=== PATIENT | female | born 2000 | race Caucasian/White ===

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

== ENCOUNTER 2018-04-13 22:52 | Emergency (ER) | payer SELFPAY ==
[2018-04-13 22:59] VITALS: BP 143/88
== END 2018-04-13 23:04 | disposition left against medical advice (07) ==
LOC: ED 22:52
DX: M25.531 Pain in right wrist (principal); Z53.21 Procedure and treatment not carried out due to patient leaving prior to being seen by health care provider

== ENCOUNTER 2018-07-16 13:22 | Emergency (ER) | payer OTHER ==
[2018-07-16 14:55] VITALS: BP 108/64
--- NOTE | 2018-07-17 12:10 | ED ---
Throat Pain/Nasal Congestion - HPI Summary HPI Summary: Pt. is a 17 y.o female who presents to the ER for fever, cough, sore throat, and ear pain x 3 days. No associated sxs of abd. pain, V/D, or urinary sxs. No past medical hx. Sx are mild in severity. NO current modifying factors. - History of Current Complaint Chief Complaint: EDThroatPain Time Seen by Provider: 07/16/18 13:57 Hx Obtained From: Patient - Allergies/Home Medications Allergies/Adverse Reactions: Allergies Allergy/AdvReac Type Severity Reaction Status Date / Time No Known Allergies Allergy Verified 07/16/18 13:24 Home Medications: Home Medications FLUoxetine CAP* [PROzac CAP*] 10 mg PO DAILY 07/16/18 [History Confirmed ] hydrOXYzine HCL TAB* [Atarax 25 MG TAB*] 1 tab PO DAILY 07/16/18 [History Confirmed 07/16/18] traZODone TAB* [Desyrel TAB*] 50 mg PO BEDTIME 07/16/18 [History Confirmed 07/16] PMH/Surg Hx/FS Hx/Imm Hx Previously Healthy: Yes Endocrine/Hematology History: Denies: Hx Diabetes Cardiovascular History: Denies: Hx Hypertension Respiratory History: Denies: Hx Asthma Psychiatric History: Reports: Hx Substance Abuse Denies: Hx Eating Disorder, Hx of Violent Episodes Against Others - Surgical History Surgery Procedure, Year, and Place: n/a Infectious Disease History: No Infectious Disease History: Denies: Traveled Outside the [place] in Last 30 Days - Family History Known Family History: Positive: None, Non-Contributory - Social History Occupation: Employed Full-time Lives: With Family Alcohol Use: None Substance Use Type: Reports: None Substance Use Comment - Amount & Last Used: Meth Smoking Status (MU): Never Smoked Tobacco Review of Systems Positive: Fever, Chills Eyes: Negative Positive: Sore Throat, Ear Ache Cardiovascular: Negative Positive: Cough. Negative: Shortness Of Breath Gastrointestinal: Negative Genitourinary: Negative Musculoskeletal: Negative Skin: Negative Neurological: Negative All Other Systems Reviewed And Are Negative: Yes Physical Exam Triage Information Reviewed: Yes Vital Signs On Initial Exam: Initial Vitals Temp Pulse Resp BP Pulse Ox 97.7 F 95 14 109/80 99 07/16/18 13:26 07/16/18 13:26 07/16/18 13:26 07/16/18 13:26 07/16/18 13:26 Vital Signs Reviewed: Yes Appearance: Positive: Well-Appearing - Pt. sitting on bed in NAD> Skin: Positive: Warm, Dry Head/Face: Positive: Normal Head/Face Inspection Eyes: Positive: Normal, EOMI, OMAR, Conjunctiva Clear ENT: Positive: Pharyngeal erythema, Other - LEft TM unremarkable. Right TM erythematous and bulging. Negative: Tonsillar swelling, Tonsillar exudate Neck: Positive: Supple, Nontender, Enlarged Nodes @ - cervical Respiratory/Lung Sounds: Positive: Clear to Auscultation, Breath Sounds Present. Negative: Rales, Rhonchi, Wheezes Cardiovascular: Positive: Normal, RRR Musculoskeletal: Positive: Normal, Strength/ROM Intact Neurological: Positive: Normal, CN Intact II-III Psychiatric: Positive: Affect/Mood Appropriate Diagnostics - Vital Signs Vital Signs Temp Pulse Resp BP Pulse Ox 07/16/18 14:54 98.1 F 86 19 108/64 99 07/16/18 13:26 97.7 F 95 14 109/80 99 - Laboratory Lab Statement: Any lab studies that have been ordered have been reviewed, and results considered in the medical decision making process. EENT Course/Dx - Course Course Of Treatment: Pt. exam consistant with OM. Will treat with augmentin. Tylenol or motrin for pain and fever as directed. Increase fluids and rest. Work excuse given. To f.u with PCP. - Differential Diagnoses Differential Diagnoses: Allergic Rhinitis, Epiglottitis, Mastoiditis, Otitis Media, Pharyngitis, Sinusitis, Tonsilitis - Diagnoses Provider Diagnoses: Otitis media Discharge - Sign-Out/Discharge Documenting (check all that apply): Patient Departure Patient Received Moderate/Deep Sedation with Procedure: No - Discharge Plan Condition: Good Disposition: HOME Prescriptions: Amoxicillin/Clavulanate TAB* [Augmentin TAB 875*] 875 mg PO BID 10 Days #20 tab Patient Education Materials: Ear Infection (ED) Forms: *Work Release Referrals: Tom BHATTI,Vincenzo Tiwari [Primary Care Provider] - - Billing Disposition and Condition Condition: GOOD Disposition: Home
== END 2018-07-16 14:54 | disposition home or self-care (01) ==
LOC: ED 13:22
DX: H66.91 Otitis media, unspecified, right ear (principal)
CPT/HCPCS: 99282

== ENCOUNTER 2018-07-18 07:27 | Emergency (ER) | payer OTHER ==
--- NOTE | 2018-07-18 07:48 | ED ---
Influenza-Like Illness - HPI Summary HPI Summary: This pt is a 17 y/o female presenting to [facility] c/o flu like symptoms for the past 4 days. Her symptoms include fever, cough, runny nose, sore throat, headache. She describes a productive cough with brown sputum. Pt states she might have bronchitis. Pt notes she had a fever of 104 F this morning. Denies chest pain, SOB, abd pain. She was diagnosed with a right ear infection 2 days ago and was given Amoxicillin which she has been taking. LMP: 1 week ago. - History of Current Complaint Chief Complaint: EDFluSymptoms Time Seen by Provider: 07/18/18 07:37 Hx Obtained From: Patient Onset/Duration: Lasting Days, Still Present Severity: Moderate Associated Signs & Symptoms: Fever, Cough, Sore Throat, Nasal Congestion, Headache - Allergy/Home Medications Allergies/Adverse Reactions: Allergies Allergy/AdvReac Type Severity Reaction Status Date / Time No Known Allergies Allergy Verified 07/16/18 13:24 PMH/Surg Hx/FS Hx/Imm Hx Endocrine/Hematology History: Denies: Hx Diabetes Cardiovascular History: Denies: Hx Hypertension Respiratory History: Denies: Hx Asthma Psychiatric History: Reports: Hx Substance Abuse Denies: Hx Eating Disorder, Hx of Violent Episodes Against Others - Surgical History Surgery Procedure, Year, and Place: Tonsillectomy. 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 Negative: Shortness Of Breath Negative: Abdominal Pain Positive: Headache All Other Systems Reviewed And Are Negative: Yes Physical Exam - Summary Physical Exam Summary: VITAL SIGNS: Reviewed. GENERAL: Patient is a well-developed and nourished female who is lying comfortable in the stretcher. Patient is not in any acute respiratory distress. HEAD AND FACE: Normocephalic. Nasal congestion. Runny nose. EYES: PERRLA, EOMI x 2. EARS: Hearing grossly intact. MOUTH: Oropharynx within normal limits. Pharyngeal erythema. NECK: Supple, trachea is midline, no adenopathy, no JVD, no carotid bruit. CHEST: Symmetric, no tenderness at palpation LUNGS: Clear to auscultation bilaterally. No wheezing or crackles. CVS: Regular rate and rhythm, S1 and S2 present, no murmurs or gallops appreciated. ABDOMEN: Soft, non-tender. Bowel sounds are normal. No abdominal abnormal pulsations. EXTREMITIES: Full ROM in all major joints, no edema, no cyanosis or clubbing. NEURO: Alert and oriented x 3. No acute neurological deficits. Speech is normal and follows commands. SKIN: Dry and warm Triage Information Reviewed: Yes Vital Signs On Initial Exam: Initial Vitals Temp Pulse Resp BP Pulse Ox 99.1 F 117 20 130/87 97 07/18/18 07:29 07/18/18 07:29 07/18/18 07:29 07/18/18 07:29 07/18/18 07:29 Vital Signs Reviewed: Yes Diagnostics - Vital Signs Vital Signs Temp Pulse Resp BP Pulse Ox 07/18/18 07:29 99.1 F 117 20 130/87 97 - Laboratory Result Diagrams: 07/18/18 08:10 07/18/18 08:10 Lab Statement: Any lab studies that have been ordered have been reviewed, and results considered in the medical decision making process. Re-Evaluation - Re-Evaluation First Eval Re-Evaluation Time: 09:15 Comment: Reviewed results with pt. She will be discharged home. Flu Symptom Course/Dx - Course Assessment/Plan: This pt is a 17 y/o female presenting to [facility] c/o flu like symptoms for the past 4 days. Her symptoms include fever, cough, runny nose, sore throat, headache. She describes a productive cough with brown sputum. Pt states she might have bronchitis. Pt notes she had a fever of 104 F this morning. Denies chest pain, SOB, abd pain. She was diagnosed with a right ear infection 2 days ago and was given Amoxicillin which she has been taking. LMP: 1 week ago. Blood test results without any significant abnormality except for CRP of 24.9, and influenza A is positive. Rapid strep is negative. In the ED course patient was given IV fluids and Toradol for the body aches. I believe that the patients symptoms are secondary to the influenza. The symptoms have started more than 4 days ago therefore the patient would not benefit from the Tamiflu. Therefore the patient will be discharged home with follow-up from her primary care physician. Patient is hemodynamically stable, alert and oriented 3. I discussed all the findings and test results with the patient. Patient was instructed to return to the emergency room immediately if any of the symptoms return worsens. Plan of care was discussed with the patient and understands and agrees. All questions were answered at patient satisfaction. There were no further complaints or concerns. Lung exam before discharge: CTA B/L. Good air exchange. No wheezing or crackles heard. CVS: S1 and S2 present. No murmurs appreciated. Patient is alert and oriented x 3. Patient is hemodynamically stable. Patient will be discharged home with follow up PCP in the next 2-3 days. - Diagnoses Differential Diagnosis/HQI/PQRI: Positive: Bronchitis, Broncholiolitis, Influenza, Upper Respiratory Infection Provider Diagnoses: Influenza A Discharge - Sign-Out/Discharge Documenting (check all that apply): Patient Departure - Discharge home Patient Received Moderate/Deep Sedation with Procedure: No - Discharge Plan Condition: Stable Disposition: HOME Patient Education Materials: Influenza (ED) Forms: *Work Release Referrals: Tom BHATTI,Vincenzo Tiwari [Primary Care Provider] - Additional Instructions: PLEASE FOLLOW UP WITH YOUR PRIMARY CARE PROVIDER IN 2-3 DAYS. RETURN TO THE ED FOR ANY WORSENING OR NEW SYMPTOMS. - Billing Disposition and Condition Condition: STABLE Disposition: Home - Attestation Statements Document Initiated by Samir: Yes Documenting Scribe: Marni Ibrahim Provider For Whom Samir is Documenting (Include Credential): Pedro Zamudio MD Scribe Attestation: Marni Samson scribed for Pedro Zamudio MD on 07/18/18 at 0926. Scribe Documentation Reviewed: Yes Provider Attestation: The documentation as recorded by the Marni aleman accurately reflects the service I personally performed and the decisions made by , Pedro Zamudio MD Status of Scribe Document: Viewed
[2018-07-18] MEDS ORDERED: NS 0.9% 1000 ML** 1,000 ML IV ONE (07:50)
[2018-07-18] MEDS ORDERED: Ketorolac INJ* 30 MG/ML 1 ML VIAL IV PUSH ONE (07:53)
[2018-07-18 08:18] LABS: ABS Basophils 0 10^3/ul (0-0.2); ABS Eosinophils 0.1 10^3/ul (0-0.6); ABS Lymphocytes 1.3 10^3/ul (1.0-4.8); ABS Monocytes 0.7 10^3/ul (0-0.8); ABS Neutrophils 3.4 10^3/ul (1.5-7.7); ABS Nucleated RBC 0 10^3/ul; Eosinophil % 1.2 %; Hematocrit 38 % (33-41); Hemoglobin 13.2 g/dL (12.0-16.0); Lymphocyte % 23.1 %; Mean Corpuscular HGB Conc 34 g/dL (31-36); Mean Corpuscular Hemoglobin 30 pg (27-31); Mean Corpuscular Volume 89 fL (80-97); Mean Platelet Volume 7.7 fL (7.4-10.4); Nucleated Red Blood Cells % 0.1; Platelet Count 242 10^3/uL (150-450); Red Blood Count 4.33 10^6 /uL (3.70-4.87); Red Cell Distribution Width 12 % (10.5-15); White Blood Count 5.4 10^3/uL (3.5-10.8)
[2018-07-18 08:28] LABS: Influenza A Molecular POSITIVE (Negative)
[2018-07-18 08:36] LABS: Albumin 4.2 g/dL (3.2-5.2); Albumin/Globulin Ratio 1.4 (1-3); BUN/Creatinine Ratio 15.5 (8-20); C Reactive Protein 24.94 mg/L (<8.01); Calcium 9.3 mg/dL (8.6-10.3); EGFR African American 128.3 (>60); Globulin 3.1 g/dL (2-4); Total Bilirubin 0.3 mg/dL (0.2-1.0); Total Protein 7.3 g/dL (6.4-8.9)
[2018-07-18 09:44] VITALS: BP 122/71
== END 2018-07-18 09:42 | disposition home or self-care (01) ==
LOC: ED 07:27
DX: J10.1 Influenza due to other identified influenza virus with other respiratory manifestations (principal)
CPT/HCPCS: 36415; 80053; 83605; 85025; 86140; 87651; 96361; 96374; 99282; J1885

== ENCOUNTER 2019-05-09 18:49 | Emergency (ER) | payer OTHER ==
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
--- OUTSIDE RECORDS SUMMARY | 2019-05-09 19:04 | XMS REPORT | Summary of Care ---
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 DIFFERENTIAL STAT 04/17/2019 7:31 Results for this AM EST procedure are in the results section. TYPE AND SCREEN STAT 04/17/2019 7:31 Results for this AM EST procedure are in the results section. URINE DRUG SCREEN Routine 04/17/2019 7:00 Results for this AM EST procedure are in the results section. documented in this encounter Results ECHOCARDIOGRAM TTE (04/19/2019 10:41 AM EST) ECHOCARDIOGRAM TTE ECHOCARDIOGRAPHY REPORT CARDIOLOGY DEPARTMENT Patient Name: AMILCAR CHIN Status: Inpatient MR Number: [id number] Gender: Female : 2000 Location: [place] Age:18 year(s) Exam Date: 04/19/2019 10:41 AM Height: 65 inches Weight: 190 pounds Study Performed: 2D echocardiogram, M-Mode, Doppler , Color Doppler, ECHOCARDIOGRAM TTE, Echocardiogram . Ordering DON CROSS Provider: Referring Provider: Mine Production Engineer: Vidhya West [facility] Room Number [id number] Interpreting THIERRY Physician JOEY BHATTI BSA: 1.94 m^2 Interpreting BMI: 31.62 kg/m^2 Fellow Nurse Technical Quality: Good visualization Contrast Medium: Bubble Study. Heart Rate (HR): 79bpm Blood Pressure (BP): 123/70mmHg INDICATION FOR STUDY: TIA. HISTORY: 18 year old female for TIA. Bubble study performed to rule out possibility of PFO/ASD. FINAL IMPRESSION: Left ventricular cavity size is normal. Left ventricular wall thickness is normal. No evidence of LVOT obstruction. No regional wall motion abnormalities. Global systolic function is normal with estimated LV EF 55-60 %. There is trace mitral regurgitation. No evidence of mitral stenosis or prolapse. There is no aortic stenosis or regurgitation. There is mild tricuspid regurgitation. Estimated pulmonary artery systolic pressure is 17 mmHg. There is mild pulmonic regurgitation. The left atrium size is normal Right atrial area is normal The right ventricle is normal in size with preserved contractility. No evidence of PFO or ASD. Bubble study was performed and showed no evidence of ASD. There is no pericardial effusion. No prior study for comparison OBSERVATIONS & FINDINGS: Using 2d (3d if applicable), M-mode, Colorflow, Continuous wave doppler and Pulse wave doppler interrogation Left Ventricle Left ventricular cavity size is normal. Left ventricular wall thickness is normal. No evidence of LVOT obstruction. No regional wall motion abnormalities. Global systolic function is normal with estimated LV EF 55-60 %. Left Atrium Vertical and lateral dimensions are 4.9 cm and 3.6 cm respectively. The left atrium size is normal (Normal indexed volume <35 ml/m2). Mitral Valve Mitral valve has mildly thickened but flexible leaflets. There is trace mitral regurgitation. No evidence of mitral stenosis or prolapse. Aortic Valve Aortic valve appears tricuspid with mildly thickened and calcified but flexible leaflets. There is no aortic stenosis or regurgitation. Right Ventricle The right ventricle is normal in size with preserved contractility. Right Atrium Vertical and lateral dimensions measure 4.2 cm and 4.1 cm respectively. Right atrial area is normal (18 cm2 or less) and measures 14.3 cm2. Tricuspid Valve The tricuspid valve is structurally normal with mobile leaflets. There is mild tricuspid regurgitation. Estimated pulmonary artery systolic pressure is 17 mmHg. There is no (TR velocity<2.9m/sec, guidelines) pulmonary hypertension. Pulmonic Valve The pulmonic valve is structurally normal with flexible leaflets. There is mild pulmonic regurgitation. Pericardium / Pleura There is no pericardial effusion. Miscellaneous Visualized portions of aorta are within normal limits. Interatrial septum appears intact by 2D imaging and Color Doppler interrogation. No evidence of PFO or ASD. Bubble study was performed and showed no evidence of ASD. Measurements & Calculations: M-Mode / 2D Measurements Value Normal Value Normal LVIDd: 4.46 cm 3.5-5.5 AO Root: 2.67 cm 2.0-3.7 LVIDs: 2.84 cm 3.0-4.0 LA Dimension: cm 1.9-4.0 IVSd: 0.98 cm 0.7-1.1 LVOT: 1.97 cm 1.5-2.5 LVPWD: 1.07 cm 0.7-1.1 RV Diastolic Dimension: 3.6 cm EF Estimated: 58 % 50-70% Doppler Measurements & Calculations: Mitral: Aortic: Area (PHT): 2.91 cm^2 LVOT VTI: 20.3 cm Peak E-Wave: 119 cm/s Peak Velocity: 159 cm/s Peak A-Wave: 73.8 cm/s Peak Gradient: 10.11 mmHg Peak Gradient: 5.66 mmHg P1/2t: 75.7 msec Area (continuity): 2.07 cm^2 Mean Velocity: 113 cm/s Mean Gradient: 5.67 mmHg AV VTI: 29.9 cm E/A Ratio: 1.61 Tricuspid: Pulmonic: RVSP:17 mmHg Peak Velocity: 85.1 cm/s Peak TR Velocity:185 cm/s Peak Gradient: 2.9 mmHg TR Gradient:13.69 mmHg TX ED Velocity: 99.4 cm/s TR Velocity: 185 cm/s TR Gradient: 13.69 mmHg Estimated PASP: 16.69 mmHg Estimated RAP: 3 mmHg Estimated RVSP: 17 mmHg Left Atrium: Right Atrium: LA Dimension: 3.6 cm RA dimension:4.1 cm LA/Aorta: 1.35 RA area:14.3 cm^2 LA Area: 14.6 cm^2 LA Volume/Index: 26.26 ml /14m^2 Left Ventricle: Right Ventricle: Diastolic Dimension: 4.46 cm Septum Diastolic: 0.98 cm PW Diastolic: 1.07 cm Alex dimension:3.6 cm EF Calculated: 57.96% CO: 4.89 l/min RV sys pressure:16.69 mmHg FS: 36.32 % LVOT LV Length: 7.4 cm Peak Velocity: 119 cm/s LVOT Diameter: 1.97 cm Peak Gradient: 5.64 mmHg Systolic Dimension: 2.84 cm LVOT Diameter: 1.97 cm Mean Velocity: 77.9 cm/s EF Estimated: 58% Mean Gradient: 2.75 mmHg CI: 2.52 l/min*m^2 LVOT VTI: 20.3 cm Aorta LV EDV/LV EDV Index: 90.4 ml/47 m^2 Aortic Root: 2.67 cm LV ESV/LV ESV Index: 38 ml/20 m^2 Ascending Aorta: 2.43 cm LVOT Diameter: 1.97 cm Pulmonary Vein: S Velocity: 56.2 cm/s D Velocity: 68.7 cm/s A Reversal Velocity: 25.5 cm/s A Reversal Duration: 130 msec Signature Ejection Fraction 58 % CARDIOLOGY DEPARTMENT AV AREA 2.07 cm2 CARDIOLOGY DEPARTMENT RVSP 17 mmHg CARDIOLOGY DEPARTMENT LA Volume 26.26 ml CARDIOLOGY DEPARTMENT LVEDd 4.46 cm CARDIOLOGY DEPARTMENT LVESd 2.84 cm CARDIOLOGY DEPARTMENT IVSd 0.98 cm CARDIOLOGY DEPARTMENT LVPWd 1.07 cm CARDIOLOGY DEPARTMENT ESV 38 ml CARDIOLOGY DEPARTMENT EDV 90.4 ml CARDIOLOGY DEPARTMENT AV Mean Gradient 5.67 mmHg CARDIOLOGY DEPARTMENT Specimen Performing Organization Address City/State/[facility] Phone Number CARDIOLOGY DEPARTMENT CT HEAD ANGIOGRAPHY [facility] [place] (04/18/2019 12:41 PM EST) Specimen Impressions Performed At Normal intracranial CTA. Urgency: Routine. This is a routine medical imaging report. Recommendation: No specific imaging recommendation. Signed by Dav Barakat MD on 04/18/2019 12:48 PM Narrative Performed At Procedure(s): CT HEAD ANGIOGRAPHY [facility] [place] Date of service: 04/18/2019 12:38 PM Provided clinical information: 18 years, Female, "pt dx with TIA 04/17/2019" Procedure and materials: Axial computed tomographic angiography images of the brain were obtained with intravenous contrast. MIP reconstructed images were created and reviewed. Coronal and sagittal reformatted images were created and reviewed. Contrast: IV contrast. Comparison studies: None. Observations: Right ICA: The right ICA is patent through the skull base. Right MCA is patent. Right EDUARDO is patent. Left ICA: The left ICA is patent through the skull base. Left MCA is patent. Left EDUARDO is patent. Posterior circulation: The intradural vertebral arteries are patent. Basilar artery is patent. Bilateral floral merchandiser appear patent. Vascular anomalies: No aneurysms or other vascular anomalies are seen. Brain parenchyma: There is no abnormal enhancement. Osseous/surrounding soft tissues: Osseous structures appear unremarkable. Surrounding soft tissues appear unremarkable. Procedure Note Interface, Rad Results - 04/18/2019 12:50 PM EST Procedure(s): CT HEAD ANGIOGRAPHY [facility] [place] Date of service: 04/18/2019 12:38 PM Provided clinical information: 18 years, Female, "pt dx with TIA 04/17/2019" Procedure and materials: Axial computed tomographic angiography images of the brain were obtained with intravenous contrast. MIP reconstructed images were created and reviewed. Coronal and sagittal reformatted images were created and reviewed. Contrast: IV contrast. Comparison studies: None. Observations: Right ICA: The right ICA is patent through the skull base. Right MCA is patent. Right EDUARDO is patent. Left ICA: The left ICA is patent through the skull base. Left MCA is patent. Left EDUARDO is patent. Posterior circulation: The intradural vertebral arteries are patent. Basilar artery is patent. Bilateral floral merchandiser appear patent. Vascular anomalies: No aneurysms or other vascular anomalies are seen. Brain parenchyma: There is no abnormal enhancement. Osseous/surrounding soft tissues: Osseous structures appear unremarkable. Surrounding soft tissues appear unremarkable. IMPRESSION Normal intracranial CTA. Urgency: Routine. This is a routine medical imaging report. Recommendation: No specific imaging recommendation. Signed by Dav Barakat MD on 04/18/2019 12:48 PM URINE PROTEIN / CREATININE RATIO (04/18/2019 7:14 AM EST) Urine Total Protein 25 (H) 0 - 12 MG/DL [facility] Urine Creatinine 21.6 20.0 - 320.0 MG/DL [facility] URINE TP CREATININE 1 No Established [facility] Reference Range [facility] mg/dl Specimen Urine - Urine specimen (specimen) Performing Organization Address City/State/Zipcode Phone Number [place] [facility] [address] [place] [address] URINE MICROSCOPIC WITH REFLEX CULTURE (04/18/2019 7:13 AM EST) Urine Wbc 0-2 0 - 5 /HPF [place] [facility] Urine Rbc 10-25 (A) 0 - 2 /HPF [facility] [place] [facility] Urine Epithelial Few None Seen /HPF [place] [facility] Urine Mucus Present (A) Negative [place] [facility] Specimen Urine - Urine specimen obtained by clean catch procedure (specimen) Performing Organization Address [facility] Phone Number [place] [facility] [address] [place] [address] URINALYSIS (LAB) WITH REFLEX CULTURE (04/18/2019 7:13 AM EST) Urine Color Yellow Yellow [facility] Urine Appearance Clear Clear [facility] Urine Glucose Negative Negative mg/dl [facility] Urine Bilirubin Negative Negative [facility] Urine Ketones Negative Negative [facility] Urine Specific 1.006 1.005 - 1.030 [place] [facility] Urine Blood Large (A) Negative [place] [facility] Urine Ph 6.0 5.0 - 8.0 [facility] Urine Protein Negative Negative mg/dl [facility] Urine Urobilinogen 0.2 0.2 - 1.0 E.U./DL [facility] Urine Nitrite Negative Negative [facility] Urine Leukocytes Small (A) Negative [place] [facility] Specimen Urine - Urine specimen obtained by clean catch procedure (specimen) Performing Organization Address [facility] Phone Number [facility] [address] [place] [address] [phone] CBC NO DIFFERENTIAL (04/18/2019 5:07 AM EST) WBC Count 18.76 (H)Comment: 3.98 - 10.04 [place] [facility] Methodology was K/uL [facility] changed 04/20/2018. Please note updated reference range and units. RBC Count 3.36 (L) 3.93 - 5.22 [facility] Hemoglobin 10.4 (L) 11.2 - 15.7 [facility] g/dL [facility] Hematocrit 30.5 (L) 34.1 - 44.9 % [facility] MCV 90.8 79.4 - 94.8 [facility] [place] [facility] MCH 31.0 25.6 - 32.2 [facility] PG [facility] MCHC 34.1 32.2 - 35.5 [facility] g/dL [facility] Platelet Count 205 182 - 369 [facility] K/uL [facility] MPV 10.7 9.4 - 12.3 FL [facility] RDW 12.5 11.7 - 14.4 % [facility] Specimen Blood - Blood specimen (specimen) Performing Organization Address City/[facility] Phone Number [facility] [address] [place] [phone] LIPID PROFILE (04/18/2019 5:06 AM EST) Cholesterol 178 <200 mg/dl [facility] HDL Cholesterol 52 >50 mg/dl [facility] Triglycerides 199 (H) <150 mg/dl [facility] LDL Cholesterol 86 <100 MG/DL [facility] Cholesterol / HDL Ratio 3.4 RATIO [facility] LDL / HDL Ratio 1.7 [facility] Non-HDL Cholesterol 126 0 - 130 MG/DL [facility] Patient Fasting: Yes [facility] Specimen Blood - Blood specimen (specimen) Performing Organization Address [facility] Phone Number [facility] [address] [place] [address] GLYCOHEMOGLOBIN A1C (04/18/2019 5:06 AM EST) Glycohemoglobin A1C 5.3 <=5.6 % [facility] Comment: [facility] Normal*: <=5.6% Pre Diabetes* Risk: 5.7-6.4% Diabetes* Risk: >=6.5% Glycemic Goals for Adult Diabetes*: <7.0% *(Adult Ranges)[place] [employer], Standards of Medical Care in Diabetes, 2018 Specimen Blood - Blood specimen (specimen) Performing Organization Address City/[facility] Phone Number [facility] [address] [place] [address] COMPREHENSIVE METABOLIC PANEL (04/17/2019 11:04 PM EST) Sodium 134 134 - 145 mmol/L [facility] Potassium 3.8 3.5 - 5.1 mmol/L [facility] Chloride 105 98 - 107 mmol/L [facility] CO2 19 (L) 22 - 30 mmol/L [facility] Calcium 9.6 8.3 - 10.1 mg/dl [facility] Albumin 3.2 (L) 3.5 - 5.0 g/dl [facility] BUN 4 (L) 7 - 17 mg/dl [facility] Creatinine 0.5 (L) 0.7 - 1.2 mg/dl [facility] Glucose 131 (H) 70 - 99 mg/dl [facility] Total Protein 6.3 6.3 - 8.2 g/dl [facility] Total Bilirubin 0.5 0.0 - 1.1 MG/DL [facility] AST 21 15 - 46 U/L [facility] ALT 17 9 - 52 U/L [facility] Alkaline 124 40 - 150 U/L [facility] eGFR >60 See Interpretation [facility] Comment: Below ml/min/1.73ml GROUP Estimated GFR Interpretation: LABORATORY Above 60ml/min/1.73m2 = Normal Renal Function 30-59 ml/min/1.73m2 = Stage 3 Chronic Kidney Disease 15-29 ml/min/1.73m2 = Stage 4 Chronic Kidney Disease Less than 15 ml/min/1.73m2 = Stage 5 Chronic Kidney Disease The GFR value is calculated using the Modification of Diet in Renal Disease ( MDRD) Study Equation which can be found at: https://www.kidney.org/content/ijzi-wplcl-nxbhemuv BUN/Creatinine 8 6 - 22 RATIO [facility] Anion Gap 10 3 - 11 mmol/L [facility] A/G Ratio 1.0 0.8 - 2.0 ratio [facility] Specimen Blood - Blood specimen (specimen) Performing Organization Address City/State/Zipcode Phone Number [facility] [address] [place] [address] CBC NO DIFFERENTIAL (04/17/2019 11:04 PM EST) WBC Count 22.70 (H)Comment: 3.98 - 10.04 [facility] Methodology was K/uL [facility] changed 04/20/2018. Please note updated reference range and units. RBC Count 3.73 (L) 3.93 - 5.22 [facility] M/UL [facility] Hemoglobin 11.4 11.2 - 15.7 [facility] g/dL [facility] Hematocrit 33.4 (L) 34.1 - 44.9 % [facility] MCV 89.5 79.4 - 94.8 [facility] FL [facility] MCH 30.6 25.6 - 32.2 [facility] PG [facility] MCHC 34.1 32.2 - 35.5 [facility] g/dL [facility] Platelet Count 215 182 - 369 [facility] K/uL [facility] MPV 10.5 9.4 - 12.3 FL [facility] RDW 12.3 11.7 - 14.4 % [facility] Specimen Blood - Blood specimen (specimen) Performing Organization Address City/State/Zipcode Phone Number [facility] [address] [address] [address] HEAD ACUTE STROKE (04/17/2019 10:49 PM EST) Specimen Impressions Performed At No CT findings of acute hemorrhage, mass effect or acute transcortical infarct. Urgency: CRITICAL. This report contains CRITICAL results which require immediate action. Discussed with Smita roberts at LDRP04/17/2019 11:00 PM. Signed by Jose Manuel Davalos MD on 04/17/2019 11:07 PM Narrative Performed At Procedure(s): CT HEAD ACUTE STROKE Date of service: 04/17/2019 10:43 PM Provided clinical information: 18 years, Female, "Acute visual deficit" Technique: Computed tomography sequences were obtained from the skull base through the vertex. Coronal and sagittal reformations were acquired. Comparison: None. Contrast: None Observations: The ventricles and sulci are within normal limits. The bishop-white differentiation is well-maintained. There is no shift of midline structures. There are no extra-axial or intra-axial fluid collections. The basal cisterns are patent. The globes and intraorbital contents are within normal limits. There is no retrobulbar inflammation. The paranasal sinuses and mastoid air cells are clear. Procedure Note Interface, Rad Results - 04/17/2019 11:09 PM EST Procedure(s): CT HEAD ACUTE STROKE Date of service: 04/17/2019 10:43 PM Provided clinical information: 18 years, Female, "Acute visual deficit" Technique: Computed tomography sequences were obtained from the skull base through the vertex. Coronal and sagittal reformations were acquired. Comparison: None. Contrast: None Observations: The ventricles and sulci are within normal limits. The bishop-white differentiation is well-maintained. There is no shift of midline structures. There are no extra-axial or intra-axial fluid collections. The basal cisterns are patent. The globes and intraorbital contents are within normal limits. There is no retrobulbar inflammation. The paranasal sinuses and mastoid air cells are clear. IMPRESSION No CT findings of acute hemorrhage, mass effect or acute transcortical infarct. Urgency: CRITICAL. This report contains CRITICAL results which require immediate action. Discussed with Smita roberts at LDRP04/17/2019 11:00 PM. Signed by Jose Manuel Davalos MD on 04/17/2019 11:07 PM CONSULT TO NEUROLOGY URGENT (04/17/2019 10:31 PM EST) CONSULT SUMMARY ASCII^Consult Information INTERCONNECT PDF TEXT Member Facility: [facility] INTERFACE Facility Visit/ Consult ID: [id number] Facility Time Zone: ET Date and Time of Request: 04-17-2019 10:31 PM Requesting Clinician: INNA TINAJERO Patient Name: RUFINA FITZGERALD Date of : 2000 Gender: Female General Chief Complaint: Vision change, numbness and headache Patient Location and Admission Status: Inpatient Family Members and Medical Staff Present During Exam: Yes History of Present Illness: 18 yof with depression had normal vaginal delivery today 1 hour afterwards she developed blur vision and "seeing spots" the left side from both eyes. She also developed mild vertex 2/10 headache, in addition to mild numbness of L face and arm. Symptoms resolved at this time. Head CT showed no acute process. She denies any prior history of DVT or PE. Number of Documented HPI Elements: 1-3 Medical History Medical History: Depression Past Procedures: None Pertinent Family History: Non contributory Allergies Allergies: NKDA Medications Anti-Coagulants: None Anti-Platelets: None Other Pertinent Medications: Lexapro Social History Alcohol Use: None Drug Use: None Tobacco Use: None Vital Signs Temperature F: 98.0 Temperature C: 36.7 Blood Pressure (mmHg): 122/74 Heart Rate (bpm): 124 Respiration Rate (/min): 18 O2 Sat (%): 97 Oxygen Delivery Method: Room Air EKG Rhythm: Sinus Rhythm Date and Time: 04/18/2019 12:26:18 AM Review Of Systems Neurological: Pertinent Positives/Negatives Neurological comments: Per HPI NIH Stroke Scale NIH Stroke Scale Score: 0 1. Level of Consciousness: 0 : alert; keenly responsive. 1a. LOC Questions: 0 : Answers both questions correctly. 1b. LOC Commands: 0 : Performs both tasks correctly. 2. Best Gaze: 0 : Normal. 3. Visual: 0 : No visual loss. 4. Facial Palsy: 0 : Normal symmetrical movements. 5a. Motor Left Arm: 0 : No drift; limb holds 90 (or 45) degrees for full 10 seconds. 5b. Motor Right Arm : 0 : No drift; limb holds 90 (or 45) degrees for full 10 seconds. 6a. Motor Left Le : No drift; leg holds 30-degree position for full 5 seconds. 6b. Motor Right Le : No drift; leg holds 30-degree position for full 5 seconds. 7. Limb Ataxia: 0 : Absent. 8. Sensory: 0 : Normal; no sensory loss. 9. Best Language: 0 : No aphasia; normal. 10. Dysarthria: 0 : Normal. 11. Extinction and inattention (formerly Neglect) : 0 : No abnormality. NIHSS Entry Time: 04/18/2019 12:26:49 AM Exam Exam: Awake and alert, oriented to age and month Normal speech and language EOMI, VFF Face symmetrical. Tongue midline No drift in all 4 No ataxia Light touch intact bilaterally Clinician assisting with exam: MONET [facility] and Imaging CT Brain Findings: No acute changes Assessment and Recommendations Assessment: 18 yof with history of depression had normal L&D today afterwards experienced transient headache, L sided blur vision and L face and arm numbness. Symptoms resolved. Exam showed no focal signs. NIHSS 0. HCT showed no acute findings. Clinically suspect complicated migraine vs. TIA. No tPA due to out of time window and mild neurological symptoms with low NIHSS. Recommendations: 1. MRI brain without gadolinium. 2. MRA head and neck 3. Echocardiogram and telemetry 4. Check FLP and HgA1c, maximize medical therapy 5. MRI/MRA and echo could be done as outpatient 6. ASA if symptoms recur Disposition: Continue current admission status Diagnosis Impression: Transient Ischemic Attack Case discussed with: Dr. Tinajero tPA Recommendation tPA recommended?: No Reason tPA not recommended: Rapid improvement and/or non - disabling symptoms ICD-10 Code Primary Diagnosis: TIA (transient ischemic attack) ICD-10 Code (Primary): G45.9 : Transient cerebral ischemic attack, unspecified Attestation Interaction Mode: Video & Phone Time of Phone Call : 04-18-2019 12:04 AM Time of Video Call : 04-18-2019 12:02 AM Interaction Attestation: Clinical telemedicine services delivered using HIPAA -compliant interactive video-audio telecommunications while the patient and the rendering provider were not in the same physi quynh location. Written report was provided to the requesting provider. Evaluation Duration (mins): 34 Roy Timer Summary Date and Time of Request: 04-17-2019 10:31 PM Physician Signature This document was electronically signed by: Sonu Ponce MD 04/18/2019 12:36 AM SERVICE LINE Neuro Emergency INTERCONNECT PDF INTERFACE Specimen Performing Organization Address City/State/[facility] Phone Number INTERCONNECT PDF INTERFACE TYPE AND SCREEN (04/17/2019 7:31 AM EST) ABO/RH Type O POS [facility] Antibody Screen Interp NEG [facility] Specimen Blood - Specimen from wound (specimen) Performing Organization Address City/State/[facility] [facility] Phone Number [facility] [place] [address] CBC WITH DIFFERENTIAL (04/17/2019 7:31 AM EST) WBC Count 19.87 (H) 3.98 - 10.04 [facility] K/uL LABORATORY RBC Count 4.05 3.93 - 5.22 M/UL [facility] Hemoglobin 12.5 11.2 - 15.7 g/dL [facility] Hematocrit 36.4 34.1 - 44.9 % [facility] MCV 89.9 79.4 - 94.8 FL [facility] MCH 30.9 25.6 - 32.2 PG [facility] MCHC 34.3 32.2 - 35.5 g/dL [facility] Platelet Count 221 182 - 369 K/uL [facility] MPV 10.5 9.4 - 12.3 FL [facility] RDW 12.4 11.7 - 14.4 % [facility] Neutrophil % 80.4 (H) 34.0 - 71.1 % [facility] Lymphocyte % 11.8 (L) 19.3 - 51.7 % [facility] Monocyte % 6.2 4.7 - 12.5 % [facility] Eosinophil % 0.4 (L) 0.7 - 5.8 % [facility] Basophil % 0.3 0.1 - 1.2 % [facility] nRBC % 0.0 0.0 - 0.2 % [facility] Neutrophil # 15.99 (H) 1.56 - 6.13 K/UL [facility] Lymphocyte # 2.35 1.18 - 3.74 K/UL [facility] Monocyte # 1.23 (H) 0.24 - 0.86 K/UL [facility] Eosinophil # 0.08 0.04 - 0.36 K/UL [facility] Basophil # 0.05 0.01 - 0.08 K/UL [facility] Immature Gran % 0.9 (H) 0.0 - 0.4 % [facility] Immature Gran # 0.17 (H) 0.00 - 0.03 K/uL [facility] NRBC # 0.00 0.00 - 0.12 K/uL [facility] Specimen Blood - Blood specimen (specimen) Performing Organization Address City/State/[facility] [place] Phone Number [facility] [address] [place] [address] URINE DRUG SCREEN (04/17/2019 7:00 AM EST) Amphetamines Negative Negative [facility] Barbiturates Positive (A) Negative [facility] Benzodiazepine Negative Negative [facility] Cannabinoids Negative Negative [facility] Cocaine Negative Negative [facility] Methadone Negative Negative [facility] Opiates Negative Negative [facility] Oxycodone Negative Negative [facility] Phencyclidine Negative Negative [facility] Propoxyphene Negative Negative [facility] Specimen Urine - Urine specimen obtained by clean catch procedure (specimen) Narrative Performed At Drug Name [facility] Cut-off Level Amphetamine (AMP/METH) 1000 ng/ml Barbiturates (LOKI) 200 ng/ml Benzodiazepines (SHAKIRA) 200 ng/ml Cannabinoids (THC) 50 ng/ml Cocaine (KENDALL) 300 ng/ml Methadone (MTD) 300 ng/ml Opiates (OPI) 300 ng/ml Oxycodone (OXY) 100 ng/ml Phencyclidine (PCP) 25 ng/ml Propoxyphene (PPX) 300 ng/ml Test results from this drug screen are to be used for medical purposes only. If positive, the sample is presumed to contain detectable drug concentrations equal to or greater than the cut-off concentrations listed above. A positive result indicates the presence of the drug or drug metabolite and does not indicate the level of intoxication or urinary concentration. Confirmation is available upon request to [facility]. Request for confirmation must be made within 5 days of the drug screen result. Performing Organization Address City/[facility] Phone Number [facility] [address] [place] [address] [phone] documented in this encounter Visit Diagnoses Diagnosis TIA (transient ischemic attack) Unspecified transient cerebral ischemia care following vaginal delivery Routine follow-up Normal labor Normal delivery documented in this encounter Administered Medications Medication Order MAR Action Action Date Dose Rate Site benzocaine (AMERICAINE) Given 04/18/2019 12:49 PM EST [place] rectal ointment 20 % Topical, PRN, Starting Tue04/17/19 at 2051, Until Tue04/19/19 at 1806, hemorrhoids, Moderate perineal pain escitalopram (LEXAPRO) tablet 10 mg Given 04/19/2019 2:33 AM EST 10 mg 10 mg, Oral, QHS, First dose (after last modification) on Tue04/17/19 at 2100, Until Discontinued Given 04/18/2019 12:55 AM EST 10 mg FentaNYL (PF) (SUBLIMAZE) injection (PF) [facility] 04/17/2019 2:48 PM EST 100 mcg 100 mcg 100 mcg, Intravenous, Q1 HR PRN, Starting Tue04/17/19 at 0558, Until Tue04/17/19 at 2057, Severe Pain (pain scale 7-10) - IV - 1st line - if immediate effect required or patient cannot tolerate PO, L&D Pre-Delivery New 04/17/2019 1:16 PM EST 100 mcg New 04/17/2019 9:32 AM EST 100 mcg FentaNYL 2 mcg/mL and ropivacaine 0.1% New 04/17/2019 3:13 PM EST 10 mL/hr epidural 200 ml Epidural, at 10 mL/hr, CONTINUOUS, Starting Tue04/17/19 at 1450, Until Tue04/18/19 at 1512, PCEA - Patient bolus dose: 4 mL every 20 minutes Number of bolus doses patient may receive in 1 hour:3, ibuprofen (MOTRIN) tablet 600 mg Given 04/19/2019 2:32 AM EST 600 mg 600 mg, Oral, Q6 HRS PRN, Starting Tue04/17/19 at 2053, Until Kathy 04/19/19 at 1806, Moderate Pain (pain scale 4-6)PO 2nd line - if immediate effect not required & can tolerate PO and still has moderate pain 4 hrs after admin of 1st line agent or did not tolerate 1st line agent, Cramping Given 04/18/2019 12:49 PM EST 600 mg Given 04/17/2019 10:21 PM EST 600 mg iohexol (OMNIPAQUE) 350 MG/ML injectable Push 04/18/2019 12:40 PM EST 100 mL solution 100 mL 100 mL, Intravenous, NOW, 1 dose, 04/18/19 at 1240 lactated ringers IV 1,000 mL New 04/17/2019 7:37 AM EST 1,000 mL 1,000 mL, Intravenous, BOLUS, 1 dose, Tue04/17/19 at 0610, L&D Pre-Delivery lactated ringers IV 1,000 mL New Bag 04/17/2019 10:22 PM EST 1,000 mL 1,000 mL, Intravenous, BOLUS, 1 dose, Tue04/17/19 at 2320 lactated ringers IV 500 mL New Bag 04/17/2019 8:04 PM EST 500 mL 500 mL, Intravenous, BOLUS PRN, Starting Tue04/17/19 at 0555, Until Tue04/17/19 at 2056, If heart tracing is Category 2 or 3 or uterine tachysystole is present, L&D Pre-Delivery, Hold if patient is preeclamptic. If concerns for fluid overload call physician for fluid overload., Rate Change 04/17/2019 6:34 PM EST 125 mL/hr Rate Change 04/17/2019 6:17 PM EST lactated ringers IV 500 mL 500 mL, Intravenous, PRN, Starting Tue04/17/19 at 1446, Until Tue04/19/19 at 1806, SBP < ___, If SBP less than 100 systolic lactated ringers IV New 04/17/2019 7:23 PM EST 125 mL/hr Intravenous, at 125 mL/hr, CONTINUOUS PRN, Starting Tue04/18/19 at 0555, Until Tue04/17/19 at 2056, If heart tracing is Category 2 or 3 or uterine tachysystole is present, L&D Pre-Delivery lanolin (LANSINOH LANOLIN) topical cream Topical, Q2 HRS PRN, Starting Tue04/17/19 at 2051, Until Tue04/19/19 at 1806, dry skin, Apply to breast to treat/prevent soreness, Apply to breast to treat/ prevent soreness, naloxone (NARCAN) injection 0.04 mg 0.04 mg, Intravenous, Q5 MIN PRN, 3 doses, Starting Tue04/17/19 at 1446, Until Tue04/19/19 at 1806, Respiratory rate < ___, For resp rate LESS THAN 10 breaths per minute, Dilute by mixing 0.4 mg of Naloxone with 9 mL of normal saline in a 10 mL syringe. Commonly dose at 0.04 mg x 1; repeated every 5-10 minutes until desired response. Administer by slow IV push 1 mL/min., olive oil topical oil Topical, EVERY 4-6 HOURS PRN, Starting Tue04/17/19 at 2052, Until Tue04/19/19 at 1806, premedication for __, difficulty latching. Apply prior to as needed to assist with latching oxytocin in normal saline New Bag 04/17/2019 8:36 125 jaya-units/min 125 mL/hr (PITOCIN) 30 units/500 mL IV PM EST drip - Post Delivery Intravenous, at 125 mL/hr, CONTINUOUS PRN, 1 dose, Starting Tue04/17/19 at 0555, Until Tue04/17/19 at 2057, Procedure - Give at the direction of the provider during procedure, POST-DELIVERY, Oxytocin in 500mL Lactated Ringers at Rate__ per hour for remainder of 1 bag., L&D Pre-Delivery, Start at immediate post delivery unless otherwise instructed by provider, oxytocin in normal saline Rate Change 04/17/2019 4:21 PM 8 jaya-units/min 8 mL/hr (PITOCIN) 30 units/500 mL EST IV drip protocol 2 jaya-units/min (2 mL/hr), Intravenous, at 2 mL/hr, DRIP, Starting Tue04/17/19 at 1250, Until Tue04/18/19 at 1217, Oxytocin DRIP Titrate by:Increase oxytocin infusion by 2 mU/min at intervals no less than every 30 min until adequate progress of labor or an adequate contraction pattern is established or contractions are 2-3 min apart, but no more than 5 contractions in a 10-minute window averaged over 30 min. If an intrauterine pressure catheter is in place, maintain Seiling units at 200-300 in a 10-minute window. Maintain oxytocin infusion at current rate or decrease rate when labor progress is adequate. Maximum dose: 20 milliunits/ min Notify provider when infusion rate reaches 20 milliunits/min. A separate order must be obtained to titrate above 20 milliunits/min. If higher doses are needed to achieve target, call provider to modify the order. Dose may be titrated outside of the above parameters if the provider is at the bedside directing the care of the patient. A Titratable Drip Nursing Communication Order is utilized to document the change, Rate Change 04/17/2019 3:06 PM EST 6 jaya-units/min 6 mL/hr Rate Change 04/17/2019 12:48 PM EST 4 jaya-units/min 4 mL/hr perflutren lipid microsphere (DEFINITY) injection 0.5 mL 0.5 mL, Intravenous Push, PRN, Starting Kathy 04/19/19 at 0808, Until Kathy 04/19/19 at 1806, Poor visualization (see Admin Instructions for details) up to a max dose of 10 mL, The Mine Production Engineer will determine if Definity needs to be administered based on the following criteria: 1. Patient has two or more wall segments which cannot be visualized in one or more views 2. Patient is technically difficult to image and is being evaluated for: a. LV function b. Known apical thrombus and/or cardiac tumors c. Suspected myocardial rupture or pseudoaneurysm 3. Patient receiving exercise or pharmacologic stress echocardiogram studies If Definity is needed , the nurse will prepare, administer and document the administration on the eMAR. Definity is provided by the inventory audit clerk and is to be prepared by the nurse as follows: 1. Activate perflutren lipid microsphere (DEFINITY) by shaking the vial for 45 seconds using a Vialmix 2. Draw up the contents of the vial into a 10 mL syringe and add 8.5 mL of Sodium Chloride 0.9% for a total volume of 10 mL 3. Administer 0.5 mL IV push 4. Flush the line with 3 mL Sodium Chloride 0.9% over 10 seconds to clear the tubing 5. Mine Production Engineer will monitor the visualization of images 6. If images are still not optimal, repeat steps 3 & 4 as needed until images are optimal OR a total of 10 mL of Definity has been administered. , documented in this encounter documented as of this encounter Advance Directives Code Status Date Activated Date Inactivated Comments Full Code 04/17/2019 8:57 PM Does the patient have decision making capacity? Yes Order was discussed with: Patient I discussed all options and patient/surrogate requested and agreed to: Full Code Full Code 04/17/2019 5:59 AM 04/17/2019 8:57 PM Does the patient have decision making capacity? Yes Order was discussed with: Patient I discussed all options and patient/surrogate requested and agreed to: Full Code Full Code 10/31/2018 6:23 PM 12/14/2018 6:23 PM Does the patient have decision making capacity? Yes Order was discussed with: Patient I discussed all options and patient/surrogate requested and agreed to: Full Code Full Code 05/08/2017 8:12 PM 05/09/2017 6:21 PM Does patient have decision making capacity? yes Order discussed with: Parent (Unique Fitzgerald, Mother) I discussed all options and patient/surrogate requested and agreed to: Full Code
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
[2019-05-09 19:21] LABS: Influenza A Molecular NEGATIVE (Negative); Influenza B Molecular NEGATIVE (Negative)
[2019-05-09] MEDS ORDERED: Lactated Ringers 1000 ML Bag* 1,000 ML IV.FLUID IV ONE (19:44)
--- NOTE | 2019-05-09 19:52 | ED ---
Complex/Multi-Sys Presentation - HPI Summary HPI Summary: Pt is a 18 y/o F presenting to the ED with multiple chief complaints. Pt states she had flu symptoms initially onset a couple of days ago, characterized by general arthralgia and fever of 104. She also notes her L breast has mastitis, she has been unable to produce any milk for her 3wk old infant, the breast is swollen, and the veins have begun to turn black. She has been trying to self- express, take warm showers, and is on abx, but it has worsened. - History Of Current Complaint Chief Complaint: EDFluSymptoms Time Seen by Provider: 05/09/19 19:39 Hx Obtained From: Patient Onset/Duration: Gradual Onset, Lasting Days, Still Present Timing: Constant, Days Severity Currently: Moderate Severity Initially: Severe Associated Signs And Symptoms: Positive: Fever - Allergies/Home Medications Allergies/Adverse Reactions: Allergies Allergy/AdvReac Type Severity Reaction Status Date / Time No Known Allergies Allergy Verified 07/16/18 13:24 Home Medications: Home Medications Dicloxacillin CAP* [Dynapen CAP*] 500 mg PO QID 05/09/19 [History Confirmed ] Escitalopram * [Lexapro 10 mg (NF)] 10 mg PO DAILY 05/09/19 [History Confirmed 05/09/19] PMH/Surg Hx/FS Hx/Imm Hx Previously Healthy: Yes Endocrine/Hematology History: Denies: Hx Diabetes Cardiovascular History: Denies: Hx Hypertension Respiratory History: Denies: Hx Asthma Neurological History: 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 Skin: Warm, dry. L breast has some redness and induration in the periareolar area extending laterally. No drainage of the nipple. There is mild induration without fluctuance. Eyes: sclera anicteric, no conjunctival pallor ENT: mucous membranes moist, pharynx appears normal Neck: Supple, nontender Respiratory: Clear to auscultation, no signs of respiratory distress Cardiovascular: Normal S1, S2. No murmurs. Normal distal pulses in tibial and radial bilaterally. Mildly tachycardic. Abdomen: Soft, nontender, normal active bowel sounds present Musculoskeletal: Normal, Strength/ROM Intact Neurological: A&Ox3, awake and alert, mentation is normal, speech is fluent and appropriate Psychiatric: affect is normal, does not appear anxious or depressed Triage Information Reviewed: Yes Vital Signs On Initial Exam: Initial Vitals Temp Pulse Resp BP Pulse Ox 99.3 F 134 18 137/85 100 05/09/19 18:49 05/09/19 18:49 05/09/19 18:49 05/09/19 18:49 05/09/19 18:49 Vital Signs Reviewed: Yes Procedures - Sedation Patient Received Moderate/Deep Sedation with Procedure: No Diagnostics - Vital Signs Vital Signs Temp Pulse Resp BP Pulse Ox 05/09/19 18:49 99.3 F 134 18 137/85 100 - Laboratory Lab Results: Lab Results 05/09/19 Range/Units 18:56 Influenza A (Rapid) Negative (Negative) Influenza B (Rapid) Negative (Negative) Result Diagrams: 05/09/19 20:38 05/09/19 20:38 Lab Statement: Any lab studies that have been ordered have been reviewed, and results considered in the medical decision making process. - Ultrasound Breast US Ultrasound Interpretation Completed By: Radiologist Summary of Ultrasound Findings: 1. Left axillary nodes measuring up to 3.5 x 1.0 x 0.8 cm. 2. Heterogeneous breast parenchyma in the retroareolar region and laterally with no abscess seen. ED physician has reviewed this report. Complex Multi-Symp Course/Dx Course Of Treatment: Pt is a 18 y/o F presenting to the ED with multiple chief complaints. Pt states she had flu symptoms initially onset a couple of days ago , characterized by general arthralgia and fever of 104. She also notes her L breast has mastitis, she has been unable to produce any milk for her 3wk old infant, the breast is swollen, and the veins have begun to turn black. She has been trying to self-express, take warm showers, and is on abx, but it has worsened. On exam, pt is a non-toxic appearing woman who is afebrile in the ED. The L breast has some redness and induration in the periareolar area extending laterally. No drainage of the nipple. There is induration without fluctuance. I spoke with Dr. Christensen about the pt's presenting condition who would like to verify the pt's antibiotic, as it does sometimes take 2-3 days to work. He is willing to see the pt in the office this coming Tuesday, 05/11. Breast US shows: 1. Left axillary nodes measuring up to 3.5 x 1.0 x 0.8 cm. 2. Heterogeneous breast parenchyma in the retroareolar region and laterally with no abscess seen. She will be d/c'ed with dx of mastitis. She is stable and agreeable with this plan. - Diagnoses Provider Diagnoses: Mastitis Discharge ED - Sign-Out/Discharge Documenting (check all that apply): Patient Departure - Discharge Plan Condition: Stable Disposition: HOME Patient Education Materials: Mastitis (ED) Referrals: Tom BHATTI,Vincenzo Tiwari [Primary Care Provider] - Additional Instructions: Continue the dicloxacillin as prescribed, and continue to try to express drainage from the breast with the baby or a breast pump. I expect to start seeing some improvement over the next couple of days, but it typically does take more than a day for the antibiotics to kick in. - Billing Disposition and Condition Condition: STABLE Disposition: Home - Attestation Statements Document Initiated by Samir: Yes Documenting Scribe: Mimi Burkett Provider For Whom Samir is Documenting (Include Credential): Dav Adame MD. Scribe Attestation: Mimi Samson, arieed for Dav Adame MD. on 05/10/19 at 0114. Scribe Documentation Reviewed: Yes Provider Attestation: The documentation as recorded by the Mimi aleman accurately reflects the service I personally performed and the decisions made by me, Dav Adame MD. Status of Scribe Document: Viewed Consult Consult: [id number] - I spoke with Dr. Christensen about the pt's presenting condition who would like to verify the pt's antibiotic, as it does sometimes take 2-3 days to work. He is willing to see the pt in the office this coming Tuesday, 05/11.
[2019-05-09 20:50] LABS: ABS Basophils 0.1 10^3/ul (0-0.2); ABS Eosinophils 0.6 10^3/ul (0-0.6); ABS Lymphocytes 2.4 10^3/ul (1.0-4.8); ABS Monocytes 0.9 10^3/ul (0-0.8); ABS Neutrophils 15.7 10^3/ul (1.5-7.7); Eosinophil % 3.2 %; Hematocrit 37 % (35-47); Hemoglobin 12.8 g/dL (12.0-16.0); Lymphocyte % 12.3 %; Mean Corpuscular HGB Conc 34 g/dL (31-36); Mean Corpuscular Hemoglobin 31 pg (27-31); Mean Corpuscular Volume 89 fL (80-97); Mean Platelet Volume 8.5 fL (7.4-10.4); Platelet Count 231 10^3/uL (150-450); Red Blood Count 4.19 10^6 /uL (3.70-4.87); Red Cell Distribution Width 12 % (10-15); White Blood Count 19.8 10^3/uL (3.5-10.8)
[2019-05-09 21:02] LABS: Activated Partial Thrombo Time 36.4 seconds (26.0-38.0); INR 1.26 (0.82-1.09)
[2019-05-09 21:06] LABS: Albumin/Globulin Ratio 1.4 (1-3); BUN/Creatinine Ratio 12.7 (8-20); C Reactive Protein 225.85 mg/L (<8.01); Calcium 9.1 mg/dL (8.6-10.3); Globulin 2.9 g/dL (2-4); Potassium 3.5 mmol/L (3.5-5.0); Total Bilirubin 0.5 mg/dL (0.2-1.0); Total Protein 6.9 g/dL (6.4-8.9)
[2019-05-09 21:26] LABS: Urine Appearance Clear; Urine Bilirubin Negative (Negative); Urine Blood Negative (Negative); Urine Color Yellow; Urine Glucose Negative (Negative); Urine Ketones Trace (Negative); Urine Nitrite Negative (Negative); Urine Protein Negative (Negative); Urine Specific Gravity 1.014 (1.010-1.030); Urine Urobilinogen Negative (Negative)
[2019-05-09 21:36] LABS: Urine Bacteria Absent (Absent); Urine Red Blood Cell 1+(3-5/hpf) (Absent); Urine Squamous Epithelial Cell Present (Absent); Urine White Blood Cell 2+(11-20/hpf) (Absent)
[2019-05-09] MEDS ORDERED: Acetaminophen TAB* 325 MG PO ONE (21:53)
[2019-05-09 23:17] VITALS: BP 124/64
== END 2019-05-09 23:07 | disposition home or self-care (01) ==
LOC: ED 18:49
DX: N61.0 Mastitis without abscess (principal); Z86.73 Personal history of transient ischemic attack (TIA), and cerebral infarction without residual deficits; Z79.899 Other long term (current) drug therapy
CPT/HCPCS: 36415; 80053; 81003; 81015; 83605; 84484; 85025; 85610; 85730; 86140; 87040; 87086; 96360; 99283; A9270-GY

== ENCOUNTER 2020-12-26 12:22 | Observation (INO) ==
[2020-12-26] MEDS ORDERED: NS 0.9% 1000 ml BAG 1,000 ML IV ONE (12:35)
[2020-12-26 12:53] LABS: ABS Basophils 0.1 10^3/ul (0-0.2); ABS Eosinophils 0.3 10^3/ul (0-0.6); ABS Lymphocytes 2.5 10^3/ul (1.0-4.8); ABS Monocytes 0.5 10^3/ul (0-0.8); ABS Neutrophils 4.3 10^3/ul (1.5-7.7); Eosinophil % 3.9 %; Hematocrit 43 % (35-47); Hemoglobin 14.9 g/dL (12.0-16.0); Lymphocyte % 32.4 %; Mean Corpuscular HGB Conc 35 g/dL (31-36); Mean Corpuscular Hemoglobin 31 pg (27-31); Mean Corpuscular Volume 90 fL (80-97); Mean Platelet Volume 8.2 fL (7.4-10.4); Platelet Count 284 10^3/uL (150-450); Red Blood Count 4.79 10^6 /uL (3.70-4.87); Red Cell Distribution Width 12 % (10-15); White Blood Count 7.6 10^3/uL (3.5-10.8)
[2020-12-26 12:59] LABS: Activated Partial Thrombo Time 35.3 seconds (26.0-38.0); INR 1.12 (0.86-1.15)
[2020-12-26 13:23] LABS: ALT 9 U/L (7-52); AST 15 U/L (13-39); Albumin 5.1 g/dL (3.2-5.2); Albumin/Globulin Ratio 1.8 (1-3); Alkaline Phosphatase 78 U/L (35-149); Anion Gap 7 mmol/L (2-11); Blood Urea Nitrogen 17 mg/dL (6-24); CO2 Carbon Dioxide 27 mmol/L (22-32); Calcium 10.2 mg/dL (8.6-10.3); Chloride 102 mmol/L (101-111); Cholesterol 180 mg/dL; EGFR African American 118.7 (>60); EGFR Non-African American 98.1 (>60); Globulin 2.9 g/dL (2-4); Glucose 101 mg/dL (70-100); HDL Cholesterol 46.9 mg/dL; LDL Cholesterol 105 mg/dL; Potassium 3.6 mmol/L (3.5-5.0); Sodium 136 mmol/L (135-145); Triglycerides 140 mg/dL
[2020-12-26] MEDS ORDERED: Aspirin EC 325 mg TAB.EC PO ONE (13:59)
[2020-12-26 17:35] LABS: HCG Pregnancy 17.28 mIU/mL
[2020-12-26 17:51] LABS: Folate > 20.00 ng/mL (5.90-24.80)
[2020-12-26 17:52] LABS: Vitamin B12 299 pg/mL (180-914)
[2020-12-27 06:29] LABS: Calcium 8.8 mg/dL (8.6-10.3); EGFR African American 130.9 (>60); EGFR Non-African American 108.2 (>60)
[2020-12-27 15:16] VITALS: BP 110/66
== END 2020-12-27 15:57 | disposition home or self-care (01) ==
LOC: MEDTELE 12:22 → ED 12:22 → MEDTELE 17:56
PROVIDERS: ADMIT Hospitalist; ATTEND Hospitalist

== ENCOUNTER 2020-12-30 15:36 | Inpatient (IN) ==
[2020-12-30 19:08] LABS: ABS Basophils 0.1 10^3/ul (0-0.2); ABS Eosinophils 0.3 10^3/ul (0-0.6); ABS Lymphocytes 3.2 10^3/ul (1.0-4.8); ABS Monocytes 0.4 10^3/ul (0-0.8); ABS Neutrophils 5.2 10^3/ul (1.5-7.7); Eosinophil % 3.3 %; Hematocrit 41 % (35-47); Hemoglobin 14.1 g/dL (12.0-16.0); Lymphocyte % 34.5 %; Mean Corpuscular HGB Conc 35 g/dL (31-36); Mean Corpuscular Hemoglobin 31 pg (27-31); Mean Corpuscular Volume 90 fL (80-97); Mean Platelet Volume 8.6 fL (7.4-10.4); Platelet Count 267 10^3/uL (150-450); Red Blood Count 4.48 10^6 /uL (3.70-4.87); Red Cell Distribution Width 12 % (10-15); White Blood Count 9.2 10^3/uL (3.5-10.8)
[2020-12-30 19:21] LABS: Urine Appearance Cloudy; Urine Bilirubin Negative (Negative); Urine Blood Negative (Negative); Urine Color Yellow; Urine Glucose Negative (Negative); Urine Ketones Negative (Negative); Urine Nitrite Negative (Negative); Urine Protein Negative (Negative); Urine Specific Gravity 1.018 (1.002-1.030); Urine Urobilinogen Negative (Negative)
[2020-12-30 19:25] LABS: Urine Bacteria 1+ (Absent); Urine Red Blood Cell Trace(0-2/hpf) (Absent); Urine Squamous Epithelial Cell Present (Absent); Urine White Blood Cell 2+(11-20/hpf) (Absent)
[2020-12-30 19:29] LABS: ALT 7 U/L (7-52); AST 13 U/L (13-39); Albumin 4.6 g/dL (3.2-5.2); Albumin/Globulin Ratio 1.8 (1-3); Alkaline Phosphatase 67 U/L (35-149); Anion Gap 5 mmol/L (2-11); Blood Urea Nitrogen 16 mg/dL (6-24); CO2 Carbon Dioxide 27 mmol/L (22-32); Calcium 9.5 mg/dL (8.6-10.3); Chloride 106 mmol/L (101-111); EGFR African American 133.2 (>60); EGFR Non-African American 110.1 (>60); Globulin 2.6 g/dL (2-4); Glucose 111 mg/dL (70-100); Sodium 138 mmol/L (135-145); Total Protein 7.2 g/dL (6.4-8.9)
[2020-12-30 19:35] LABS: HCG Pregnancy 7.85 mIU/mL
[2020-12-30 19:36] LABS: Acetaminophen < 15 mcg/mL; Alcohol, S < 13 mg/dL (<13); Salicylate < 2.50 mg/dL (<30)
[2020-12-30 19:39] LABS: Urine Benzodiazepine Screen None Detected (None Detect); Urine Cannabinoids Screen None Detected (None Detect); Urine Opiates Screen None Detected (None Detect)
[2020-12-30 19:51] LABS: TSH Ultra Thyroid Stim Horm 1.59 mcIU/mL (0.34-5.60)
[2020-12-30] MEDS ORDERED: Al Hydrox/Mg Hydrox/Simet LIQ 30 ML UDC PO PRN (22:08)
[2020-12-30] MEDS ORDERED: Nicotine GUM 2MG FRUIT FLAVOR PO PRN (23:00)
[2020-12-30 23:45] LABS: Rapid COVID-19 Molecular Undetected (Undetected)
[2020-12-31 08:23] LABS: HDL Cholesterol 45.3 mg/dL
[2020-12-31] MEDS: Vitamin THERAPEUTIC TAB PO SCH (10:05)
[2020-12-31] MEDS: Aspirin EC 81 mg TAB.EC (enteric coated) PO SCH (10:05)
[2021-01-01] MEDS: Aspirin EC 81 mg TAB.EC (enteric coated) PO SCH (10:03)
[2021-01-01] MEDS: Vitamin THERAPEUTIC TAB PO SCH (10:03)
[2021-01-02] MEDS: Aspirin EC 81 mg TAB.EC (enteric coated) PO SCH (09:33)
[2021-01-02] MEDS: Vitamin THERAPEUTIC TAB PO SCH (09:33)
[2021-01-03] MEDS: Vitamin THERAPEUTIC TAB PO SCH (09:05)
[2021-01-03] MEDS: Aspirin EC 81 mg TAB.EC (enteric coated) PO SCH (09:05)
[2021-01-04] MEDS: Vitamin THERAPEUTIC TAB PO SCH (09:06)
[2021-01-04] MEDS: Aspirin EC 81 mg TAB.EC (enteric coated) PO SCH (09:06)
[2021-01-05] MEDS: Aspirin EC 81 mg TAB.EC (enteric coated) PO SCH (08:23)
[2021-01-05] MEDS: Vitamin THERAPEUTIC TAB PO SCH (08:24)
[2021-01-05 09:20] VITALS: BP 108/80
== END 2021-01-05 12:50 | disposition home or self-care (01) | DRG 753 ==
LOC: ED 15:36 → BSU 21:49
PROVIDERS: ADMIT Psychiatry & Neurology Psychiatry; ATTEND Psychiatry & Neurology Psychiatry